=== PATIENT | male | born 1985 | race Caucasian/White ===

== ENCOUNTER 2018-04-10 22:06 | Observation (INO) ==
[2018-04-10] MEDS ORDERED: GI Cocktail 40 ML EACH PO ONE (22:16)
[2018-04-10] MEDS ORDERED: Ondansetron ODT 4 MG TAB.RAPDIS SL ONE ×2 (22:16→22:30)
--- NOTE | 2018-04-10 22:17 | Emergency Department Note ---
Disposition Clinical Impression: Abdominal pain Disposition: Home, Self-Care Condition: Good Instructions: Abdominal Pain (ED) Reasons to Return/Additional Instructions: Return to the emergency department if you have any worsening of your current s ymptoms, or if you develop any new symptoms. Follow-up your emergency department visit by setting up an appointment with your primary care provider. Take all medications as prescribed. Prescriptions: Omeprazole 20 mg PO QDPC #28 tablet. Ondansetron [Zofran ODT] 8 mg SL Q8H PRN #21 tab PRN Reason: Nausea Referrals: NONE,PCP [Primary Care Provider] - [facility] [Outside] Forms: ED Satisfaction Letter, Work/School Release Time of Disposition: 00:54 General Adult HPI - General Stated complaint: abdominal pain/vomiting Time Seen by Provider: 04/10/18 22:12 Source: patient Limitations: no limitations Nursing Notes Reviewed: Yes Vital Signs Reviewed: Yes - History of Present Illness HPI Narrative: 32-year-old male history of gastritis as emergency department with concern for epigastric abdominal pain radiating up into his chest. Patient states that this started a few hours ago. He has vomited a few times. Nonbloody nonbilious emesis. Localizes pain to the epigastric area. Patient denies any use of alcohol. States that he has ibuprofen for recent ankle injury, but has not been taking it recently. Denies any use of alcohol as well. States he has not drank any in an entire month. Pain Scale: 10 - Related Data Home Medications Medication Instructions Recorded Confirmed Albuterol Sulfate [Albuterol 2 puff IH Q4HR PRN 01/31/15 01/31/15 Inhaler] Ibuprofen [Motrin] 800 mg PO Q8HR 01/31/15 01/31/15 Omeprazole [PriLOSEC] 20 mg PO DAILY 01/31/15 01/31/15 Previous Rx's Medication Instructions Recorded Hydrocodone/Acetaminophen [[place] 2 tab PO Q4H PRN #20 tab 01/31/15 5-325 Tablet] Omeprazole 20 mg PO QDPC #28 tablet. 04/11/18 Ondansetron [Zofran ODT] 8 mg SL Q8H PRN #21 tab 04/11/18 Allergies Allergy/AdvReac Type Severity Reaction Status Date / Time codeine Allergy Anaphylaxis Verified 01/31/15 09:47 All systems ED: reviewed and negative except as stated. Review of Systems: As Per HPI Constitutional: Denies: fever Cardiovascular: Reports: chest pain Respiratory: Denies: dyspnea Gastrointestinal: Reports: abdominal pain, nausea, vomiting Genitourinary: Denies: urgency, dysuria, frequency, hematuria Musculoskeletal: Denies: back pain Integumentary: Denies: rash Neurological: Denies: headache Past Medical History - Past Medical History Medical history: Reports: asthma Psychiatric history: Reports: no psych history - Social History Smoking Status: Current some day smoker Smokeless Tobacco Status: No Alcohol use: Reports: occasionally Drug use: Reports: none Physical Exam - General Limitations: no limitations General appearance: alert, in no apparent distress - Head Head exam: normocephalic - Eye Eye exam: Present: EOMI - ENT ENT exam: normal oropharynx, mucous membranes moist - Neck Neck exam: Present: trachea midline - Chest Chest inspection: Present: symmetric chest wall rise - Respiratory Respiratory exam: Present: normal lung sounds bilaterally. Absent: respiratory distress, accessory muscle use - Cardiovascular Cardiovascular exam: Present: normal rhythm, tachycardia, normal heart sounds - Extremities Exam Extremities exam: Present: normal capillary refill - Back Exam Back exam: Present: full ROM - Neurological Exam Neurological exam: Present: alert, oriented X3 - Psychiatric Psychiatric exam: Present: normal affect, normal mood - Skin Skin exam: Present: warm, dry, intact, normal color. Absent: rash Course Vital Signs Temperature 98.6 F 04/10/18 22:13 Pulse Rate 122 04/10/18 22:13 Respiratory Rate 16 04/10/18 22:13 Blood Pressure 153/92 04/10/18 22:13 O2 Sat by Pulse Oximetry 98 04/10/18 22:13 Temperature 98.6 F 04/10/18 22:13 Pulse Rate 97 04/11/18 00:06 Respiratory Rate 18 04/11/18 00:06 Blood Pressure 144/105 04/11/18 00:06 O2 Sat by Pulse Oximetry 100 04/11/18 00:06 Oxygen Delivery Oxygen Delivery Room Air Medical Decision Making - MDM Narrative Medical decision making narrative: 32-year-old male presents emergency department with concern for epigastric abdominal pain, nausea, vomiting. Patient has heart rate of 122 at initial triage. However, in the room, his heart rate is in the low 100s. Patient's abdomen was soft, mildly tender in the epigastric region. No risk factors for pancreatitis at this time. We will not obtain a lipase. We will also obtain any other lab work. No concern for cholecystitis as there is no right upper qu adrant tenderness. No history of gastritis, pain is most likely secondary to an exacerbation of it. We are trying GI cocktail as well as Zofran. Patient reporting that his abdominal pain is migrating to his right lower quadrant. We will obtain CT scan of the abdomen and pelvis to rule out append icitis. This is currently pending at the end of our shift. Anticipated that his CT scan comes back negative, we will initiate proton pump inhibitor therapy on the patient. Vital Signs Temperature 98.6 F 04/10/18 22:13 Pulse Rate 122 04/10/18 22:13 Respiratory Rate 16 04/10/18 22:13 Blood Pressure 153/92 04/10/18 22:13 O2 Sat by Pulse Oximetry 98 04/10/18 22:13 Temperature 98.6 F 04/10/18 22:13 Pulse Rate 97 04/11/18 00:06 Respiratory Rate 18 04/11/18 00:06 Blood Pressure 144/105 04/11/18 00:06 O2 Sat by Pulse Oximetry 100 04/11/18 00:06 Oxygen Delivery Oxygen Delivery Room Air - Lab Data Result diagrams: 04/10/18 22:51 04/10/18 22:51 Lab Results 04/10/18 04/10/18 04/10/18 Range/Units 22:51 22:51 22:51 WBC 22.4 H (4.3-11.1) K/mcL RBC 4.96 (4.19-5.50) M/mcL Hgb 14.1 (12.9-16.9) g/dL Hct 41.7 (37.5-50.1) % MCV 84.1 (83.0-100.0) fL MCH 28.4 (28.0-33.3) pg MCHC 33.8 (31.6-35.5) g/dL RDW 13.1 (11.5-14.5) % Plt Count 271 (140-400) K/mcL MPV 9.4 (9.4-12.4) fL Immature Gran % 0.5 (0-4) % Seg Neutrophils % 85.3 % Lymphocytes % 8.8 % Monocytes % 4.1 % Eosinophils % 0.9 % Basophils % 0.4 % Neutrophils # 19.1 H (1.6-8.9) K/mcL Lymphocytes # 2.0 (0.6-4.6) K/mcL Monocytes # 0.9 (0.0-1.3) K/mcL Eosinophils # 0.2 (0.0-0.6) K/mcL Basophils # 0.1 (0.0-0.2) K/mcL Sodium 137 (136-145) mEq/L Potassium 3.4 L (3.5-5.1) mEq/L Chloride 104 (98-107) mEq/L Carbon Dioxide 24 (23-29) mEq/L BUN 11 (6-20) mg/dL Creatinine 0.85 (0.70-1.30) mg/dL Est GFR ( Amer) > 60 (> 60) Est GFR (Non-Af Amer) > 60 (> 60) BUN/Creatinine Ratio 13 (6-26) Glucose 97 (70-105) mg/dL Calculated Osmolality 283 (280-300) Calcium 9.1 (8.6-10.3) mg/dL Total Bilirubin 0.5 (0.3-1.0) mg/dL AST 25 (13-39) Units/L ALT 31 (7-52) Units/L Alkaline Phosphatase 55 (34-104) Units/L Serum Total Protein 7.2 (6.4-8.9) g/dL Albumin 4.2 (3.5-5.7) g/dL Globulin 3.0 (2.4-3.5) g/dL Albumin/Globulin Ratio 1.4 (1.1-2.2) Lipase 12 (11-82) Units/L Urine Color (Yellow) Urine Clarity (Clear) Urine pH (5.0-8.0) pH Units Ur Specific [place] (1.010-1.025) Urine Protein (Neg-Trace) mg/dL Urine Glucose (UA) (Normal) mg/dL Urine Ketones (Negative) mg/dL Urine Blood (Negative) Urine Nitrite (Negative) Urine Bilirubin (Negative) Urine Urobilinogen (Normal) mg/dL Ur Leukocyte Esterase (Negative) Ur Culture Indicated? (NO) 04/10/18 Range/Units 23:30 WBC (4.3-11.1) K/mcL RBC (4.19-5.50) M/mcL Hgb (12.9-16.9) g/dL Hct (37.5-50.1) % MCV (83.0-100.0) fL MCH (28.0-33.3) pg MCHC (31.6-35.5) g/dL RDW (11.5-14.5) % Plt Count (140-400) K/mcL MPV (9.4-12.4) fL Immature Gran % (0-4) % Seg Neutrophils % % Lymphocytes % % Monocytes % % Eosinophils % % Basophils % % Neutrophils # (1.6-8.9) K/mcL Lymphocytes # (0.6-4.6) K/mcL Monocytes # (0.0-1.3) K/mcL Eosinophils # (0.0-0.6) K/mcL Basophils # (0.0-0.2) K/mcL Sodium (136-145) mEq/L Potassium (3.5-5.1) mEq/L Chloride (98-107) mEq/L Carbon Dioxide (23-29) mEq/L BUN (6-20) mg/dL Creatinine (0.70-1.30) mg/dL Est GFR ( Amer) (> 60) Est GFR (Non-Af Amer) (> 60) BUN/Creatinine Ratio (6-26) Glucose (70-105) mg/dL Calculated Osmolality (280-300) Calcium (8.6-10.3) mg/dL Total Bilirubin (0.3-1.0) mg/dL AST (13-39) Units/L ALT (7-52) Units/L Alkaline Phosphatase (34-104) Units/L Serum Total Protein (6.4-8.9) g/dL Albumin (3.5-5.7) g/dL Globulin (2.4-3.5) g/dL Albumin/Globulin Ratio (1.1-2.2) Lipase (11-82) Units/L Urine Color Yellow (Yellow) Urine Clarity Clear (Clear) Urine pH 5.5 (5.0-8.0) pH Units Ur Specific [place] 1.019 (1.010-1.025) Urine Protein Negative (Neg-Trace) mg/dL Urine Glucose (UA) Normal (Normal) mg/dL Urine Ketones 15 H (Negative) mg/dL Urine Blood Negative (Negative) Urine Nitrite Negative (Negative) Urine Bilirubin Negative (Negative) Urine Urobilinogen Normal (Normal) mg/dL Ur Leukocyte Esterase Negative (Negative) Ur Culture Indicated? NO (NO)
--- NOTE | 2018-04-10 22:18 | Emergency Department Note ---
Disposition Clinical Impression: Abdominal pain Qualifiers: Abdominal location: right lower quadrant Qualified Code(s): R10.31 - Right lower quadrant pain Leukocytosis Qualifiers: Leukocytosis type: unspecified Qualified Code(s): D72.829 - Elevated white blood cell count, unspecified Acute appendicitis Qualifiers: Acute appendicitis type: unspecified acute appendicitis type Qualified Code(s): K35.80 - Unspecified acute appendicitis Disposition: Admitted As Inpatient Condition: Good General Adult HPI - General Chief complaint: ED Abdominal Pain Stated complaint: abdominal pain/vomiting Time Seen by Provider: 04/10/18 22:12 Source: patient Limitations: no limitations Nursing Notes Reviewed: Yes Vital Signs Reviewed: Yes - History of Present Illness Pain Scale: 10 - Related Data Home Medications Medication Instructions Recorded Confirmed Albuterol Sulfate [Albuterol 2 puff IH Q4HR PRN 01/31/15 01/31/15 Inhaler] Ibuprofen [Motrin] 800 mg PO Q8HR 01/31/15 01/31/15 Omeprazole [PriLOSEC] 20 mg PO DAILY 01/31/15 01/31/15 Previous Rx's Medication Instructions Recorded Hydrocodone/Acetaminophen [[place] 2 tab PO Q4H PRN #20 tab 01/31/15 5-325 Tablet] Allergies Allergy/AdvReac Type Severity Reaction Status Date / Time codeine Allergy Anaphylaxis Verified 01/31/15 09:47 Past Medical History - Past Medical History Medical history: Reports: asthma Psychiatric history: Reports: no psych history - Social History Smoking Status: Current some day smoker Smokeless Tobacco Status: No Alcohol use: Reports: occasionally Drug use: Reports: none Physical Exam - General Limitations: no limitations General appearance: alert, in no apparent distress Course Vital Signs Temperature 98.6 F 04/10/18 22:13 Pulse Rate 122 04/10/18 22:13 Respiratory Rate 16 04/10/18 22:13 Blood Pressure 153/92 04/10/18 22:13 O2 Sat by Pulse Oximetry 98 04/10/18 22:13 Temperature 98.6 F 04/10/18 22:13 Pulse Rate 99 04/11/18 02:53 Respiratory Rate 16 04/11/18 02:53 Blood Pressure 116/82 04/11/18 02:53 O2 Sat by Pulse Oximetry 98 04/11/18 02:53 Oxygen Delivery Oxygen Delivery Room Air Medical Decision Making - Medical Records Medical records reviewed: Yes I reviewed the patient's medical records. - Lab Data Lab results reviewed: Yes I reviewed the patient's lab results. Result diagrams: 04/10/18 22:51 04/10/18 22:51 Lab Results 04/10/18 04/10/18 04/10/18 Range/Units 22:51 22:51 22:51 WBC 22.4 H (4.3-11.1) K/mcL RBC 4.96 (4.19-5.50) M/mcL Hgb 14.1 (12.9-16.9) g/dL Hct 41.7 (37.5-50.1) % MCV 84.1 (83.0-100.0) fL MCH 28.4 (28.0-33.3) pg MCHC 33.8 (31.6-35.5) g/dL RDW 13.1 (11.5-14.5) % Plt Count 271 (140-400) K/mcL MPV 9.4 (9.4-12.4) fL Immature Gran % 0.5 (0-4) % Seg Neutrophils % 85.3 % Lymphocytes % 8.8 % Monocytes % 4.1 % Eosinophils % 0.9 % Basophils % 0.4 % Neutrophils # 19.1 H (1.6-8.9) K/mcL Lymphocytes # 2.0 (0.6-4.6) K/mcL Monocytes # 0.9 (0.0-1.3) K/mcL Eosinophils # 0.2 (0.0-0.6) K/mcL Basophils # 0.1 (0.0-0.2) K/mcL Sodium 137 (136-145) mEq/L Potassium 3.4 L (3.5-5.1) mEq/L Chloride 104 (98-107) mEq/L Carbon Dioxide 24 (23-29) mEq/L BUN 11 (6-20) mg/dL Creatinine 0.85 (0.70-1.30) mg/dL Est GFR ( Amer) > 60 (> 60) Est GFR (Non-Af Amer) > 60 (> 60) BUN/Creatinine Ratio 13 (6-26) Glucose 97 (70-105) mg/dL Calculated Osmolality 283 (280-300) Calcium 9.1 (8.6-10.3) mg/dL Total Bilirubin 0.5 (0.3-1.0) mg/dL AST 25 (13-39) Units/L ALT 31 (7-52) Units/L Alkaline Phosphatase 55 (34-104) Units/L Serum Total Protein 7.2 (6.4-8.9) g/dL Albumin 4.2 (3.5-5.7) g/dL Globulin 3.0 (2.4-3.5) g/dL Albumin/Globulin Ratio 1.4 (1.1-2.2) Lipase 12 (11-82) Units/L Urine Color (Yellow) Urine Clarity (Clear) Urine pH (5.0-8.0) pH Units Ur Specific [place] (1.010-1.025) Urine Protein (Neg-Trace) mg/dL Urine Glucose (UA) (Normal) mg/dL Urine Ketones (Negative) mg/dL Urine Blood (Negative) Urine Nitrite (Negative) Urine Bilirubin (Negative) Urine Urobilinogen (Normal) mg/dL Ur Leukocyte Esterase (Negative) Ur Culture Indicated? (NO) 04/10/18 Range/Units 23:30 WBC (4.3-11.1) K/mcL RBC (4.19-5.50) M/mcL Hgb (12.9-16.9) g/dL Hct (37.5-50.1) % MCV (83.0-100.0) fL MCH (28.0-33.3) pg MCHC (31.6-35.5) g/dL RDW (11.5-14.5) % Plt Count (140-400) K/mcL MPV (9.4-12.4) fL Immature Gran % (0-4) % Seg Neutrophils % % Lymphocytes % % Monocytes % % Eosinophils % % Basophils % % Neutrophils # (1.6-8.9) K/mcL Lymphocytes # (0.6-4.6) K/mcL Monocytes # (0.0-1.3) K/mcL Eosinophils # (0.0-0.6) K/mcL Basophils # (0.0-0.2) K/mcL Sodium (136-145) mEq/L Potassium (3.5-5.1) mEq/L Chloride (98-107) mEq/L Carbon Dioxide (23-29) mEq/L BUN (6-20) mg/dL Creatinine (0.70-1.30) mg/dL Est GFR ( Amer) (> 60) Est GFR (Non-Af Amer) (> 60) BUN/Creatinine Ratio (6-26) Glucose (70-105) mg/dL Calculated Osmolality (280-300) Calcium (8.6-10.3) mg/dL Total Bilirubin (0.3-1.0) mg/dL AST (13-39) Units/L ALT (7-52) Units/L Alkaline Phosphatase (34-104) Units/L Serum Total Protein (6.4-8.9) g/dL Albumin (3.5-5.7) g/dL Globulin (2.4-3.5) g/dL Albumin/Globulin Ratio (1.1-2.2) Lipase (11-82) Units/L Urine Color Yellow (Yellow) Urine Clarity Clear (Clear) Urine pH 5.5 (5.0-8.0) pH Units Ur Specific [place] 1.019 (1.010-1.025) Urine Protein Negative (Neg-Trace) mg/dL Urine Glucose (UA) Normal (Normal) mg/dL Urine Ketones 15 H (Negative) mg/dL Urine Blood Negative (Negative) Urine Nitrite Negative (Negative) Urine Bilirubin Negative (Negative) Urine Urobilinogen Normal (Normal) mg/dL Ur Leukocyte Esterase Negative (Negative) Ur Culture Indicated? NO (NO) - Radiology Data Radiology results reviewed: Yes I reviewed the patient's radiology results. Abdomen/Pelvis CT 04/11/18 00:01 IMPRESSION: Non perforated acute appendicitis. Hepatic steatosis. Mild diverticulosis coli. D/ / Ar Mcfadden / Ar Mcfadden Interpreting Provider: Ar Mcfadden Attestation Statement - Attestation Attestation: I examined this patient and my medical decision-making was reviewed with the Resident Physician. I agree with the documented findings, disposition and treatment plan as described except to the extent set forth below. [id number] time provided Patient presents with epigastric pain that radiates to his back. He has a history of gastritis. Appears uncomfortable on exam 23:27: The patient has no focal right upper quadrant or right lower quadrant tenderness per my exam. He does not have evidence of an acute surgical abdomen 00:35: Patient's pain persisted, worsened. Taking into account his leukocytosis, CT abd/pelvis was ordered. Care endorsed to Dr. Nicholas at 01:[address] abd/pelvis I, Vj Nicholas MD, personally evaluated this patient and discussed their management with the resident physician. I reviewed the resident's note and agree with the documented findings, medical decision making, and plan of care. This patient was signed out at shift change from Dr. Morales and Dr. Maldonado. Please refer to their notes for complete details of history and physical examination. At shift change patient is awaiting a CT of the abdomen and pelvis. CT returned and showed acute appendicitis. On examination patient is a well-developed well-nourished male in no acute distress. He is alert and oriented 3. There is no cyanosis or diaphoresis. Breath sounds are clear and equal bilaterally. Heart regular rate and rhythm. Abdomen is soft with present bowel sounds. Moderate right lower quadrant tenderness with guarding. The surgeon iron cutter, Dr. Lopez, was consulted and accepted admission of the patient to the surgical service.
[2018-04-10] MEDS ORDERED: 0.9 % Sodium Chloride 1,000 ML IVC ONE (22:40)
[2018-04-10] MEDS ORDERED: Ondansetron 4 MG/2 ML VIAL IVP ONE (22:40)
[2018-04-10] MEDS ORDERED: *HR* FentaNYL (PF) 100 MCG/2 ML VIAL IVP ONE (22:41)
[2018-04-10] MEDS ORDERED: Pantoprazole 40 MG VIAL IVP ONE (22:41)
[2018-04-10 23:19] LABS: Basophils # 0.1 K/mcL (0.0-0.2); Basophils % 0.4 %; Eosinophils # 0.2 K/mcL (0.0-0.6); Eosinophils % 0.9 %; Hematocrit 41.7 % (37.5-50.1); Hemoglobin 14.1 g/dL (12.9-16.9); Immature Granulocytes % 0.5 % (0-4); Lymphocytes % 8.8 %; Mean Corpuscular HGB Conc 33.8 g/dL (31.6-35.5); Mean Corpuscular Hemoglobin 28.4 pg (28.0-33.3); Mean Corpuscular Volume 84.1 fL (83.0-100.0); Mean Platelet Volume 9.4 fL (9.4-12.4); Monocytes # 0.9 K/mcL (0.0-1.3); Monocytes % 4.1 %; Neutrophils # 19.1 K/mcL (1.6-8.9); Platelet Count 271 K/mcL (140-400); Red Blood Count 4.96 M/mcL (4.19-5.50); Red Cell Distribution Width 13.1 % (11.5-14.5); Segmented Neutrophils % 85.3 %
[2018-04-10 23:39] LABS: Alanine Aminotransferase 31 Units/L (7-52); Albumin 4.2 g/dL (3.5-5.7); Albumin/Globulin Ratio 1.4 (1.1-2.2); Alkaline Phosphatase 55 Units/L (34-104); Aspartate Amino Transferase 25 Units/L (13-39); BUN/Creatinine Ratio 13 (6-26); Bilirubin,Total 0.5 mg/dL (0.3-1.0); Blood Urea Nitrogen 11 mg/dL (6-20); Calcium 9.1 mg/dL (8.6-10.3); Carbon Dioxide 24 mEq/L (23-29); Chloride 104 mEq/L (98-107); Glucose 97 mg/dL (70-105); Osmolality,Calculated 283 (280-300); Potassium 3.4 mEq/L (3.5-5.1); Sodium 137 mEq/L (136-145); Total Protein 7.2 g/dL (6.4-8.9); eGFR For Non-African Americans > 60 (> 60)
[2018-04-10 23:40] LABS: Bilirubin,Urine Negative (Negative); Blood,Urine Negative (Negative); Clarity,Urine Clear (Clear); Color,Urine Yellow (Yellow); Glucose,Urine (UA) Normal (Normal); Ketones,Urine 15 mg/dL (Negative); Leukocyte Esterase,Urine Negative (Negative); Nitrite,Urine Negative (Negative); PH,Urine 5.5 pH Units (5.0-8.0); Protein,Urine Negative (Neg-Trace); Specific Gravity,Urine 1.019 (1.010-1.025); Urobilinogen,Urine Normal (Normal)
[2018-04-10] MEDS ORDERED: *HR* Morphine Immed Rel 30 MG TABLET PO STA (23:59)
[2018-04-11] MEDS ORDERED: Isovue-370 500 ML INFUS..BTL IV ONE (00:01)
[2018-04-11] MEDS ORDERED: Piperacillin/Tazobactam 3.375 GM in 0.9 % Sodium Chloride Mini Bag 100 ML IVPB ONE (02:40)
[2018-04-11] MEDS ORDERED: *HR* FentaNYL (PF) 100 MCG/2 ML VIAL IVP ONE (02:42)
[2018-04-11] MEDS ORDERED: Ringers Solution, Lactated 1,000 ML IVC SCH (02:45)
--- NOTE | 2018-04-11 02:53 | Emergency Department Note ---
Disposition Clinical Impression: Abdominal pain Qualifiers: Abdominal location: right lower quadrant Qualified Code(s): R10.31 - Right lower quadrant pain Leukocytosis Qualifiers: Leukocytosis type: unspecified Qualified Code(s): D72.829 - Elevated white blood cell count, unspecified Acute appendicitis Qualifiers: Acute appendicitis type: unspecified acute appendicitis type Qualified Code(s): K35.80 - Unspecified acute appendicitis Disposition: Admitted As Inpatient Condition: Good Instructions: Abdominal Pain (ED) Reasons to Return/Additional Instructions: Return to the emergency department if you have any worsening of your current sym ptoms, or if you develop any new symptoms. Follow-up your emergency department visit by setting up an appointment with your primary care provider. Take all medications as prescribed. Referrals: [facility] [Outside] NONE,PCP [Primary Care Provider] - Forms: ED Satisfaction Letter, Work/School Release Time of Disposition: 02:58 General Adult HPI - General Chief complaint: ED Abdominal Pain Stated complaint: abdominal pain/vomiting Time Seen by Provider: 04/10/18 22:12 Source: patient Limitations: no limitations - History of Present Illness Pain Scale: 5 - Related Data Home Medications Medication Instructions Recorded Confirmed Albuterol Sulfate [Albuterol 2 puff IH Q4HR PRN 01/31/15 01/31/15 Inhaler] Ibuprofen [Motrin] 800 mg PO Q8HR 01/31/15 01/31/15 Omeprazole [PriLOSEC] 20 mg PO DAILY 01/31/15 01/31/15 Previous Rx's Medication Instructions Recorded Hydrocodone/Acetaminophen [[place] 2 tab PO Q4H PRN #20 tab 01/31/15 5-325 Tablet] Allergies Allergy/AdvReac Type Severity Reaction Status Date / Time codeine Allergy Anaphylaxis Verified 01/31/15 09:47 Constitutional: Denies: fever Cardiovascular: Reports: chest pain Respiratory: Denies: dyspnea Gastrointestinal: Reports: abdominal pain, nausea, vomiting Genitourinary: Denies: urgency, dysuria, frequency, hematuria Musculoskeletal: Denies: back pain Integumentary: Denies: rash Neurological: Denies: headache Past Medical History - Past Medical History Medical history: Reports: asthma Psychiatric history: Reports: no psych history - Social History Smoking Status: Current some day smoker Smokeless Tobacco Status: No Alcohol use: Reports: occasionally Drug use: Reports: none Physical Exam - General Limitations: no limitations General appearance: alert, in no apparent distress Course Vital Signs Temperature 98.6 F 04/10/18 22:13 Pulse Rate 122 04/10/18 22:13 Respiratory Rate 16 04/10/18 22:13 Blood Pressure 153/92 04/10/18 22:13 O2 Sat by Pulse Oximetry 98 04/10/18 22:13 Temperature 98.6 F 04/10/18 22:13 Pulse Rate 98 04/11/18 01:42 Respiratory Rate 16 04/11/18 01:42 Blood Pressure 157/103 04/11/18 01:42 O2 Sat by Pulse Oximetry 97 04/11/18 01:42 Oxygen Delivery Oxygen Delivery Room Air Medical Decision Making - MDM Narrative Medical decision making narrative: Patient was received in signout from Dr. Morales and Dr. Maldonado due to shift change. Please see their documentation for history of presenting illness, physical exam and initial medical decision making. The CT the abdomen and pelvis was pending at the time of signout. The results of the CT scan show a non-perforated acute appendicitis. I did call and speak to Dr. Lopez the on-call surgeon who recommended that the patient be admitted to his service. He just recommended that patient be started on fluids. He preferred LR at 100 mL per hour. He also recommended the patient be started on Zosyn. These have been done. The patient will be admitted to his service for further evaluation and management and likely surgical intervention. Patient has been stable throughout his time here in the emergency department. - Medical Records Medical records reviewed: Yes I reviewed the patient's medical records. - Lab Data Lab results reviewed: Yes I reviewed the patient's lab results. Result diagrams: 04/10/18 22:51 04/10/18 22:51 Lab Results 04/10/18 04/10/18 04/10/18 Range/Units 22:51 22:51 22:51 WBC 22.4 H (4.3-11.1) K/mcL RBC 4.96 (4.19-5.50) M/mcL Hgb 14.1 (12.9-16.9) g/dL Hct 41.7 (37.5-50.1) % MCV 84.1 (83.0-100.0) fL MCH 28.4 (28.0-33.3) pg MCHC 33.8 (31.6-35.5) g/dL RDW 13.1 (11.5-14.5) % Plt Count 271 (140-400) K/mcL MPV 9.4 (9.4-12.4) fL Immature Gran % 0.5 (0-4) % Seg Neutrophils % 85.3 % Lymphocytes % 8.8 % Monocytes % 4.1 % Eosinophils % 0.9 % Basophils % 0.4 % Neutrophils # 19.1 H (1.6-8.9) K/mcL Lymphocytes # 2.0 (0.6-4.6) K/mcL Monocytes # 0.9 (0.0-1.3) K/mcL Eosinophils # 0.2 (0.0-0.6) K/mcL Basophils # 0.1 (0.0-0.2) K/mcL Sodium 137 (136-145) mEq/L Potassium 3.4 L (3.5-5.1) mEq/L Chloride 104 (98-107) mEq/L Carbon Dioxide 24 (23-29) mEq/L BUN 11 (6-20) mg/dL Creatinine 0.85 (0.70-1.30) mg/dL Est GFR ( Amer) > 60 (> 60) Est GFR (Non-Af Amer) > 60 (> 60) BUN/Creatinine Ratio 13 (6-26) Glucose 97 (70-105) mg/dL Calculated Osmolality 283 (280-300) Calcium 9.1 (8.6-10.3) mg/dL Total Bilirubin 0.5 (0.3-1.0) mg/dL AST 25 (13-39) Units/L ALT 31 (7-52) Units/L Alkaline Phosphatase 55 (34-104) Units/L Serum Total Protein 7.2 (6.4-8.9) g/dL Albumin 4.2 (3.5-5.7) g/dL Globulin 3.0 (2.4-3.5) g/dL Albumin/Globulin Ratio 1.4 (1.1-2.2) Lipase 12 (11-82) Units/L Urine Color (Yellow) Urine Clarity (Clear) Urine pH (5.0-8.0) pH Units Ur Specific [place] (1.010-1.025) Urine Protein (Neg-Trace) mg/dL Urine Glucose (UA) (Normal) mg/dL Urine Ketones (Negative) mg/dL Urine Blood (Negative) Urine Nitrite (Negative) Urine Bilirubin (Negative) Urine Urobilinogen (Normal) mg/dL Ur Leukocyte Esterase (Negative) Ur Culture Indicated? (NO) 04/10/18 Range/Units 23:30 WBC (4.3-11.1) K/mcL RBC (4.19-5.50) M/mcL Hgb (12.9-16.9) g/dL Hct (37.5-50.1) % MCV (83.0-100.0) fL MCH (28.0-33.3) pg MCHC (31.6-35.5) g/dL RDW (11.5-14.5) % Plt Count (140-400) K/mcL MPV (9.4-12.4) fL Immature Gran % (0-4) % Seg Neutrophils % % Lymphocytes % % Monocytes % % Eosinophils % % Basophils % % Neutrophils # (1.6-8.9) K/mcL Lymphocytes # (0.6-4.6) K/mcL Monocytes # (0.0-1.3) K/mcL Eosinophils # (0.0-0.6) K/mcL Basophils # (0.0-0.2) K/mcL Sodium (136-145) mEq/L Potassium (3.5-5.1) mEq/L Chloride (98-107) mEq/L Carbon Dioxide (23-29) mEq/L BUN (6-20) mg/dL Creatinine (0.70-1.30) mg/dL Est GFR ( Amer) (> 60) Est GFR (Non-Af Amer) (> 60) BUN/Creatinine Ratio (6-26) Glucose (70-105) mg/dL Calculated Osmolality (280-300) Calcium (8.6-10.3) mg/dL Total Bilirubin (0.3-1.0) mg/dL AST (13-39) Units/L ALT (7-52) Units/L Alkaline Phosphatase (34-104) Units/L Serum Total Protein (6.4-8.9) g/dL Albumin (3.5-5.7) g/dL Globulin (2.4-3.5) g/dL Albumin/Globulin Ratio (1.1-2.2) Lipase (11-82) Units/L Urine Color Yellow (Yellow) Urine Clarity Clear (Clear) Urine pH 5.5 (5.0-8.0) pH Units Ur Specific [place] 1.019 (1.010-1.025) Urine Protein Negative (Neg-Trace) mg/dL Urine Glucose (UA) Normal (Normal) mg/dL Urine Ketones 15 H (Negative) mg/dL Urine Blood Negative (Negative) Urine Nitrite Negative (Negative) Urine Bilirubin Negative (Negative) Urine Urobilinogen Normal (Normal) mg/dL Ur Leukocyte Esterase Negative (Negative) Ur Culture Indicated? NO (NO) - Radiology Data Radiology results reviewed: Yes I reviewed the patient's radiology results. Abdomen/Pelvis CT 04/11/18 00:01 IMPRESSION: Non perforated acute appendicitis. Hepatic steatosis. Mild diverticulosis coli. D/ / Ar Mcfadden / Ar Mcfadden Interpreting Provider: Ar Mcfadden
[2018-04-11] MEDS ORDERED: *HR* Morphine 2 MG/ML SYRINGE IVP PRN (04:18)
[2018-04-11] MEDS ORDERED: 0.9 % Sodium Chloride 1,000 ML IVC SCH (04:30)
[2018-04-11] MEDS ORDERED: *HR* FentaNYL (PF) 100 MCG/2 ML VIAL IVP PRN ×2 (06:48→15:36)
[2018-04-11] MEDS ORDERED: Ondansetron 4 MG/2 ML VIAL IVP PRN ×2 (09:36→17:29)
--- NOTE | 2018-04-11 10:53 | General Surg History&Physical ---
Date of Encounter: 04/11/18 Time of Encounter: 10:50 Assessment and Plan (1) Acute appendicitis Current Visit: Yes Status: Acute 32M with acute appendicitis; NPO IVF IV abx plan for lap appy today; The assessment and plan as outlined above was discussed with the patient and/or family members who expressed understanding and agreement. All questions were answered. Qualifiers: Acute appendicitis type: with localized peritonitis Appendicitis gangrene presence: unspecified whether gangrene present Appendicitis perforation presence: without perforation Appendicitis abscess presence: without abscess Qualified Code(s): K35.30 - Acute appendicitis with localized peritonitis, without perforation or gangrene History of Present Illness Chief complaint: abdominal pain HPI: Mr. Tovar is a 32 year old male otherwise healthy who presents with a one day history of worsening RLQ pain that is sharp in nature, non radiating, no identifiable precipating events that is relieved slightly when lying still and exacerbated with movement. No fevers, chills, nausea, or vomiting. A CT scan was obtained, which was reviewed and interpreted by me, which demonstrated an enlarged appendix. Past Med Surg Social Fam HX - Past Medical History Medical history: asthma Psychiatric history: no psych history - Past Surgical History Additional surgical history: orif to left wrist - Social History Smoking Status: Current some day smoker Packs per day: 0.5 Smokeless Tobacco Status: No Alcohol use: rarely, occasionally Drug use: none - Additional Family History Additional family history: non contributory Medications and Allergies Ibuprofen [Motrin] 800 mg PO Q8HR 01/31/15 [History] Allergy/AdvReac Type Severity Reaction Status Date / Time codeine Allergy Anaphylaxis Verified 01/31/15 09:47 Review of Systems All systems PM: 12 point ROS negative besides HPI findings General Surgery Exam Initial Vital Signs Temp Pulse Resp BP Pulse Ox 98.6 F 122 16 153/92 98 04/10/18 22:13 04/10/18 22:13 04/10/18 22:13 04/10/18 22:13 04/10/18 22:13 - General physical appearance no distress - Eyes normal ocular movement - ENT normocephalic - Neck no lymphadectomy - Respiratory normal expansion, normal respiratory effort - Cardiovascular Cardiovascular exam: Present: RRR - Abdomen Abdomen general surgery: Present: soft, tender Abdominal Tenderness: Present: RLQ - Integumentary Integumentary general surgery: Present: warm and dry - Neurologic Present: CN 2-12 grossly intact - Musculoskeletal Present: normal posture - Psychiatric Psychiatric general surgery: Present: A&Ox3 Results - Labs 04/10/18 22:51 04/10/18 22:51 Abnormal lab results WBC 22.4 K/mcL (4.3-11.1) H 04/10/18 22:51 Neutrophils # 19.1 K/mcL (1.6-8.9) H 04/10/18 22:51 Potassium 3.4 mEq/L (3.5-5.1) L 04/10/18 22:51 Urine Ketones 15 mg/dL (Negative) H 04/10/18 23:30 Diabetes panel 04/10/18 Range/Units 22:51 Sodium 137 (136-145) mEq/L Potassium 3.4 L (3.5-5.1) mEq/L Chloride 104 (98-107) mEq/L Carbon Dioxide 24 (23-29) mEq/L BUN 11 (6-20) mg/dL Creatinine 0.85 (0.70-1.30) mg/dL Glucose 97 (70-105) mg/dL Calcium 9.1 (8.6-10.3) mg/dL AST 25 (13-39) Units/L ALT 31 (7-52) Units/L Alkaline Phosphatase 55 (34-104) Units/L Albumin 4.2 (3.5-5.7) g/dL Calcium panel 04/10/18 Range/Units 22:51 Calcium 9.1 (8.6-10.3) mg/dL Albumin 4.2 (3.5-5.7) g/dL Pituitary panel 04/10/18 Range/Units 22:51 Sodium 137 (136-145) mEq/L Potassium 3.4 L (3.5-5.1) mEq/L Chloride 104 (98-107) mEq/L Carbon Dioxide 24 (23-29) mEq/L BUN 11 (6-20) mg/dL Creatinine 0.85 (0.70-1.30) mg/dL Glucose 97 (70-105) mg/dL Calcium 9.1 (8.6-10.3) mg/dL Adrenal panel 04/10/18 Range/Units 22:51 Sodium 137 (136-145) mEq/L Potassium 3.4 L (3.5-5.1) mEq/L Chloride 104 (98-107) mEq/L Carbon Dioxide 24 (23-29) mEq/L BUN 11 (6-20) mg/dL Creatinine 0.85 (0.70-1.30) mg/dL Glucose 97 (70-105) mg/dL Calcium 9.1 (8.6-10.3) mg/dL Total Bilirubin 0.5 (0.3-1.0) mg/dL AST 25 (13-39) Units/L ALT 31 (7-52) Units/L Alkaline Phosphatase 55 (34-104) Units/L Albumin 4.2 (3.5-5.7) g/dL All other labs normal. - Imaging CT scan - abdomen: report reviewed, image reviewed CT scan - pelvis: report reviewed, image reviewed - VTE Reasons for not Prescribing Prophylaxis: Treatment not Indicated - Low risk for VTE
[2018-04-11] MEDS ORDERED: Piperacillin/Tazobactam 3.375 GM in 0.9 % Sodium Chloride Mini Bag 100 ML IVPB SCH (11:00)
--- NOTE | 2018-04-11 13:34 | Event Note ---
Date of Encounter: 04/11/18 Time of Encounter: 13:33 pt with history of asthma and some day smoking. Will order scheduled duonebs x2 preoperatively
[2018-04-11] MEDS ORDERED: *HR* FentaNYL (PF) 100 MCG/2 ML VIAL ONE ×3 (14:19→15:39)
[2018-04-11] MEDS ORDERED: *HR* Midazolam HCl 2 MG/2 ML VIAL ONE (14:21)
[2018-04-11] MEDS ORDERED: *HR* Propofol 200 MG/20 ML VIAL IVP ONE (14:21)
[2018-04-11] MEDS ORDERED: *HR* Succinylcholine 200 MG/10 ML VIAL IVP ONE (14:24)
[2018-04-11] MEDS ORDERED: *HR* Rocuronium Bromide 50 MG/5 ML VIAL ONE (14:24)
[2018-04-11] MEDS ORDERED: Lidocaine -MPF 2% 2 ML VIAL ONE (14:24)
[2018-04-11] MEDS ORDERED: Dexamethasone 4 MG/ML VIAL ONE ×2 (14:24→15:11)
[2018-04-11] MEDS ORDERED: Ondansetron 4 MG/2 ML VIAL ONE (14:24)
--- NOTE | 2018-04-11 14:25 | Anesthesia Evaluation PreOp ---
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 Any Significant HX Other Medical History: Denies Any Significant HX Anesthesia History: No Prior Anesthetic Complications, Past Anesthesia Alcohol Use: rarely, occasionally Drug use: none Medications and Allergies Ibuprofen [Motrin] 800 mg PO Q8HR 01/31/15 [History] Allergy/AdvReac Type Severity Reaction Status Date / Time codeine Allergy Anaphylaxis Verified 01/31/15 09:47 - Meds/Allergy Pre-op Review Medications Reviewed: Yes Allergies Reviewed: Yes Beta Blockers on Current Med List: No Anesthesia Results - Labs 04/10/18 22:51 04/10/18 22:51 Anesthesia Exam Vital Signs/O2 Sat/Glucose, Most Recent Temp Pulse Resp BP Pulse Ox 98.7 F 91 18 101/65 97 04/11/18 13:56 04/11/18 13:56 04/11/18 13:56 04/11/18 13:56 04/11/18 13:56 Blood Glucose* 112 Height: 5'9''/1.75m Weight: 238 lbs/108 kg NPO (# of Hours): 8 Pain Scale: 3 Pain Scale Used: Numeric (1 - 10) - HEENT Pupil (Motor): EOMI Mallampati: II Teeth: Normal Oral Opening: Greater than 3 - LEASE OUT WORKER LOC: Oriented LEASE OUT WORKER Motor: Normal RUE, Normal LUE, Normal RLE, Normal LLE, Normal Face LEASE OUT WORKER Sensory: Normal: RUE, LUE, RLE, LLE, Face - Cardiac Rhythm: Regular Murmur: None - Pulmonary Breath Sounds: bilateral Clear Respiratory Effort: Symmetrical Anesthesia Assess/Plan ASA Score: 2 Level of consciousness: Cooperative, Oriented, Tranquil Anesthetic Plan: General Monitoring Plan: Standard Monitors Recovery Plan: PACU
[2018-04-11] MEDS ORDERED: Lidocaine -MPF 4% 5 ML AMPUL ONE (14:29)
[2018-04-11] MEDS ORDERED: Neostigmine Methylsulfate 3 MG/3 ML SYRINGE ONE (14:31)
[2018-04-11] MEDS ORDERED: *HR* HYDROmorphone 2 MG/ML SYRINGE ONE (14:35)
[2018-04-11] MEDS ORDERED: Acetaminophen IV 1,000 MG/100 ML INFUS..BTL ONE (14:35)
[2018-04-11] MEDS ORDERED: *HR* Promethazine 25 MG/ML VIAL IVP PRN (15:36)
[2018-04-11] MEDS ORDERED: Ondansetron 4 MG/2 ML VIAL IVP ONE (15:36)
[2018-04-11] MEDS: Ipratropium/Albuterol Neb 3 ML IH SCH ×2 (15:42→15:43)
--- NOTE | 2018-04-11 16:00 | Operative Note ---
Date of procedure: 04/11/18 Pre-op diagnosis: acute appendicitis Post-op diagnosis: same Procedure: laparoscopic appendectomy Implants: none Complications: none Anesthesia: GETA Local Anesthetics: 0.5% Sensorcaine HCL SubQ (cc) Surgeon: Ja Lopez Was there an cashier assistant present: Yes Order Entry Administrator: Marga Lackey Estimated blood loss (cc): 5 Specimen: appendix Condition: stable Disposition: PACU Procedure in Detail: The patient was brought into the operating room suite. The patient was placed in the supine position. Mechanical DVT prophylaxis was initiated. The patient underwent smooth induction of general endotracheal anesthesia. The patient was prepped and draped in the usual fashion. Preoperative antibiotics were given. A timeout was held identifying the correct patient, pathology, and procedure. Everyone was in agreement and we began a procedure. Incision to Mesenteric Window I started bycreating a supraumbilical incision and via open Bailey technique ent ered into the abdomen. I then used a Vicryl suture on a UR 6 needle in a [id number] fashion to reapproximate but not close the fascia. I then inserted the 10 trocar followed by the camera to visualize the intraabdominal cavity. I then created a 5 mm incision suprapubically and inserted the 5 mm trocar under direct visualization. Roughly 1 handbreadth lateral to the umbilical incision I created another 5 mm incision and inserted another 5 mm trocar under direct visualization. I then inserted the nontraumatic instruments into the 5 mm ports and began the procedure. I was able to identify the tinea coli coalescing at the base of the cecum to identify the appendix. Using the nontraumatic grasper I was able to grasp the appendix and then using the [place] dissector was able to create a mesenteric window. Mesenteric Window to Appendectomy I then inserted the nontraumatic grasper into the same mesenteric window to widen it. I then grasped the appendix and switched from the 10 mm camera to the 5 mm camera so that we can insert the stapler through the umbilical port. The teeth of the stapler through the mesenteric window. It should be stated that the stapler was a 45 mm bowel load stapler. It was positioned at the base of the appendix and I was able to confirm under direct visualization that the teeth contained no other structures such as the cecum. I then fired the stapler and resected the appendix from the base of the cecum. I then loaded up a vascular load stapler and then in the similar fashion did fire across the mesentery. It should be stated that there was trace amounts of purulent drainage near the appendix; This was suctioned and irrigated and suctioned again. Retrieval to Closure I then inserted the Endo Catch bag to retrieve the specimen which was intact upon retrieval. I then switched back to the 10 mm camera and inserted the nontraumatic grasper as well as a suction-media developer into the 5 mm ports. And under direct visualization I was able to appreciate the staple line of the mesoappendix as well as the staple line of the base of the cecum. There was no obvious leaking nor bleeding. The pelvis did not have any collection of fluid. I then concluded the procedure, turned off the insufflation, removed the trochars under direct visualization, and then closed the umbilical fascia using the Vicryl suture that was placed at the beginning. I then closed all incisions with interrupted 4-0 Monocryl. And then sealed with Dermabon. It should be stated that I did use 0.5% Marcaine as a local anesthetic. The patient tolerated the procedure well and did go back to PACU in stable condition.
--- NOTE | 2018-04-11 16:53 | Anesthesia Evaluation Post Op ---
Date of Encounter: 04/11/18 Time of Encounter: 16:52 - Vital Signs Vital Signs: Vital Signs/O2 Sat, Most Current Temp Pulse Resp BP Pulse Ox 100.3 F H 96 13 113/73 96 04/11/18 16:46 04/11/18 16:46 04/11/18 16:46 04/11/18 16:46 04/11/18 16:46 - Lungs Lungs: Clear Ascult./Percussion - Airway Airway: Non-obstructed - Cardiovascular Regular Rate - Mental Status Mental Status: Alert & Oriented, Answers Appropriately - Pain Pain Scale: 2 Pain Scale used: Numeric (1 - 10) - Nausea Vomiting Nausea Vomiting: Not Present - Hydration Hydration: NPO, Has not voided - Discharge PostOp Status: Transfer Patient to floor
[2018-04-11] MEDS ORDERED: Ibuprofen 600 MG TABLET PO SCH (18:00)
[2018-04-11] MEDS: Piperacillin/Tazobactam 3.375 GM in 0.9 % Sodium Chloride Mini Bag 100 ML IVPB SCH (19:03)
[2018-04-11] MEDS: 0.9 % Sodium Chloride 1,000 ML IVC SCH ×2 (19:03→22:03)
[2018-04-11] MEDS: Ibuprofen 600 MG TABLET PO SCH (20:45)
[2018-04-12] MEDS ORDERED: 0.9 % Sodium Chloride Mini Bag 100 ML ONE (03:07)
[2018-04-12] MEDS: Ibuprofen 600 MG TABLET PO SCH ×2 (03:18→08:20)
[2018-04-12] MEDS: Piperacillin/Tazobactam 3.375 GM in 0.9 % Sodium Chloride Mini Bag 100 ML IVPB SCH (03:19)
[2018-04-12 06:56] VITALS: BP 102/62
--- NOTE | 2018-04-12 08:45 | General Surgery Progress Note ---
Date of Encounter: 04/12/18 Time of Encounter: 08:44 - Assessment and Plan (1) Acute appendicitis Current Visit: Yes Status: Acute 32M POD #1 s/p lap appy; diet as tolerated transition to PO abx (d/c with 5 days of PO abx) SLIV when tolerating PO okay for discharge today and follow up in two weeks Qualifiers: Acute appendicitis type: with localized peritonitis Appendicitis gangrene presence: unspecified whether gangrene present Appendicitis perforation presence: without perforation Appendicitis abscess presence: without abscess Qualified Code(s): K35.30 - Acute appendicitis with localized peritonitis, without perforation or gangrene Subjective Patient reports: no new complaints, feels better, still having pain, pain is less, tolerating liquids well, afebrile Objective Vital Signs - Last 8 Hours Temp Pulse Resp BP Pulse Ox 04/12/18 06:50 97.9 F 70 16 102/62 96 04/12/18 03:57 97.9 F 81 15 112/70 96 Intake and Output 04/11/18 04/12/18 04/12/18 23:59 07:59 15:59 Intake Total 2300 / 2300 100 / 100 Output Total 350 / 350 450 / 450 Balance 1950 / 1950 -350 / -350 Intake: IV Fluids 2100 / 2100 100 / 100 0.9 % Sodium Chloride 1,000 ML 2000 / 2000 @ 75 mls/hr IVC .[id number] VINICIO Rx #:[id number] Zosyn 3.375 GM In 0.9 % Sodium 100 / 100 100 / 100 Chloride (Mini-Bag +) 100 ML @ 25 mls/hr IVPB Q8H VINICIO Rx#: [id number] Oral 200 / 200 0 / 0 Output: Urine 350 / 350 450 / 450 Other: Weight 108 kg Patient Weight 04/12/18 23:59 Weight 108 kg - General physical appearance no distress - Respiratory normal expansion, normal respiratory effort - Cardiovascular Cardiovascular exam: Present: RRR - Abdomen Abdomen: Present: soft, tender (appropriately tender along incisions) - Incision Incision: Present: clean and dry, intact - Neurologic CN 2-12 grossly intact - Labs 04/10/18 22:51 04/10/18 22:51 - VTE Reasons for not Prescribing Prophylaxis: Treatment not Indicated - Low risk for VTE Consult Discharge Plan - Plan Referrals: Martita Beltran, [employer] [Advanced Practice Nurse] - 04/26/18 2:00 pm
--- NOTE | 2018-04-12 10:06 | Discharge Summary ---
Orders not resulted at time of discharge: Pending orders 04/11/18 15:52 Surgical Pathology [PTH] Routine Date of Encounter: 04/12/18 Time of Encounter: 10:11 - Discharge Diagnosis (1) Abdominal pain Priority: Primary Status: Resolved Qualifiers: Abdominal location: right lower quadrant Qualified Code(s): R10.31 - Right lower quadrant pain (2) Leukocytosis Priority: Secondary Status: Resolved Qualifiers: Leukocytosis type: unspecified Qualified Code(s): D72.829 - Elevated white blood cell count, unspecified (3) Acute appendicitis Priority: Primary Status: Resolved Qualifiers: Acute appendicitis type: with localized peritonitis Appendicitis gangrene presence: unspecified whether gangrene present Appendicitis perforation presence: without perforation Appendicitis abscess presence: without abscess Qualified Code(s): K35.30 - Acute appendicitis with localized peritonitis, without perforation or gangrene General Surgery Exam Initial Vital Signs Temp Pulse Resp BP Pulse Ox 98.6 F 122 16 153/92 98 04/10/18 22:13 04/10/18 22:13 04/10/18 22:13 04/10/18 22:13 04/10/18 22:13 - Hospital Course Hospital course: Mr. Tovar is a 32 year old male 04/10/2018 with complaints of right lower quadrant pain. His exam and imaging were consistent with acute appendicitis. He was taken to the operating room on 04/11/2018 where he underwent an uncomplicated laparoscopic appendectomy. He is ambulating avoiding without difficulty, tolerating a diet without nausea or vomiting, vital signs are stable, and he is afebrile. We will begin discharge planning to home with a follow-up in approximately 2 weeks. - Time Spent with Patient Total time spent providing and/or coordinating discharge services: - Discharge Medications Prescriptions: Ondansetron ODT [Zofran ODT] 4 mg SL Q4HR PRN #15 tab.rapdis PRN Reason: Postsurgical nausea Amoxicillin/Clavulanate [Augmentin] 875 mg PO BIDWM #10 tablet Docusate Sodium [Colace] 100 mg PO BID PRN #30 capsule PRN Reason: Constipation Ibuprofen 800 mg PO Q8H PRN #42 tablet PRN Reason: Mild Pain Home Medications: Amoxicillin/Clavulanate [Augmentin] 875 mg PO BIDWM #10 tablet 11/27/18 [Rx] Docusate Sodium [Colace] 100 mg PO BID PRN #30 capsule 04/12/18 [Rx] Ibuprofen 800 mg PO Q8H PRN #42 tablet 04/12/18 [Rx] Ondansetron ODT [Zofran ODT] 4 mg SL Q4HR PRN #15 tab.rapdis 04/12/18 [Rx] Allergies/Adverse Reactions: Allergy/AdvReac Type Severity Reaction Status Date / Time codeine Allergy Anaphylaxis Verified 01/31/15 09:47 Date of admission: 04/11/18 02:43 Primary care physician: PCP NONE Discharging clinician: Martita Beltran Anticipated date of discharge: 04/12/18 Labs on day of discharge: Labs from last 24 hours 04/11/18 04/11/18 10:50 05:48 POC Glucose 112 H 129 H - Impressions ITS Impressions Abdomen/Pelvis CT 04/11/18 00:01 IMPRESSION: Non perforated acute appendicitis. Hepatic steatosis. Mild diverticulosis coli. D/ / Ar Mcfadden / Ar Mcfadden Interpreting Provider: Ar Mcfadden - Patient Status Disposition: Home, Self-Care Condition: Good Functional capacity at discharge: independent ambulation Overall status at discharge: patient is not back to baseline - Discharge Instructions Instructions: Laparoscopic Appendectomy (DC) Follow Up With: Martita Beltran CNP [Advanced Practice Nurse] - 04/26/18 2:00 pm Forms: Work/School Release Additional Instructions: General Surgical Discharge Instructions 1. No pushing, pulling, or lifting greater than 15 lbs for 2 weeks (depending upon procedure). 2. You may shower beginning today, but no tub baths, soaking, or swimming for 2 weeks. 3. You may resume driving when you are off narcotics and are safe to react in a car. 4. Take ibuprofen every 8 hours for discomfort. If this does not relieve discomfort, you may take the as needed Percocet. Take narcotics as directed. Do not take more narcotics then directed and do not share your narcotics with any other person. Do not drink alcohol while on narcotics. 4a) always eat something when you take narcotics. Taking narcotics on an empty stomach can cause nausea and vomiting. Take Zofran if you have nausea or you may premedicate with Zofran prior to narcotics. 5. Take stool softeners (Colace) or a water based laxative (Miralax) while taking narcotics. You may hold for loose stools. 6. Report any fevers greater than 100.5F, increase abdominal discomfort, drainage that looks like pus, increased redness or pain at the surgical site, or any vomiting. 7. Report any pain in the calves, shortness of breath, or rapid heartbeat. 8. Follow-up in the office as directed. 9. If you were prescribed antibiotics, do not stop them without talking to your provider. - Diet and Activity Activity: increase activity as tolerated Diet: advance to your usual diet
== END 2018-04-12 11:48 | disposition home or self-care (01) ==
LOC: 3ANU 22:06 → EMEROOARM 22:06 → 3ANU 04-11 03:38
PROVIDERS: ADMIT Surgery; ATTEND Surgery